=== PATIENT | female | born 1970 | race American Indian/Alaskan Native ===

== ENCOUNTER 2016-06-01 06:23 | Emergency (ER) | payer OTHER ==
[2016-06-01] MEDS ORDERED: TORADOL IM ONE (08:26)
[2016-06-01] MEDS ORDERED: FLEXERIL PO ONE (08:26)
--- NOTE | 2016-06-01 08:32 | Emergency Department Report ---
HPI - General Chief Complaint: Back Pain/Injury Time Seen by Provider: 06/01/16 08:12 - HPI HPI: 45-year-old female presents today complaining of left-sided lower back pain radiating to left buttocks since 3 PM yesterday. Patient states the pain started post her trying to move a table. Positive for pain worsening. Describes her pain as 10 on a 10 aching tightness that is worse with movement. He tried Tylenol 3 without relief. Denies history of similar symptoms. Denies numbness, weakness, paresthesias. Denies bowel or bladder incontinence. Denies fever, chills, nausea, vomiting, chest pain, shortness of breath, abdominal pain. Patient has history of hypertension and is currently taking lisinopril and verapamil. Patient states that she has not taken her blood pressure medication this morning. Denies headache, visual changes, dizziness, confusion. ED Past Medical Hx - Past Medical History Hx Hypertension: Yes Additional medical history: Gout - Surgical History Past Surgical History?: Yes Additional Surgical History: Appendix, Mammoplasti - Social History Smoking Status: Never Smoker Substance Use Type: None - Medications Home Medications: Home Medications Medication Instructions Recorded Confirmed Last Taken Type Cyclobenzaprine [Flexeril] 10 mg PO TID PRN #20 tablet 06/01/16 Unknown Rx Naproxen [Naprosyn] 500 mg PO BID #30 tablet 06/01/16 Unknown Rx ED Review of Systems ROS: Stated complaint: BACK PAIN Other details as noted in HPI Constitutional: denies: chills, fever, malaise Eyes: denies: eye pain ENT: denies: ear pain, throat pain, congestion Respiratory: denies: cough, shortness of breath, wheezing Cardiovascular: denies: chest pain, palpitations Endocrine: no symptoms reported Gastrointestinal: denies: abdominal pain, nausea, vomiting Genitourinary: denies: urgency, dysuria, frequency, hematuria Musculoskeletal: back pain Neurological: denies: headache, weakness, numbness, paresthesias Physical Exam - Physical Exam Vital Signs: Vital Signs 06/01/16 07:25 Temperature 98.5 F Pulse Rate 94 H Respiratory 18 Rate Blood Pressure 188/108 O2 Sat by Pulse 98 Oximetry Physical Exam: GENERAL: The patient is well-developed and well-nourished. Patient is in NAD. HEAD: Normocephalic. Atraumatic. CHEST/LUNGS: Clear to auscultation throughout. HEART/CARDIOVASCULAR: Regular rate and rhythm. ABDOMEN: Abdomen is soft, nontender. Bowel sounds normoactive. No guarding or rebound tenderness. Negative for CVA tenderness bilaterally. EXTREMITIES: Full range of motion. Peripheral pulses intact. Capillary refill less than 2 seconds. BACK: Full ROM. Positive for midline tenderness and left-sided paraspinal tenderness of lumbar region. No tenderness to palpation or sciatic notch bilaterally. Negative straight leg raise bilaterally. NEURO: Alert and oriented x 3. Normal gait. ED Course Vital Signs 06/01/16 07:25 Temperature 98.5 F Pulse Rate 94 H Respiratory 18 Rate Blood Pressure 188/108 O2 Sat by Pulse 98 Oximetry ED Medical Decision Making - Lab Data Vital Signs 06/01/16 06/01/16 06/01/16 07:25 08:55 10:26 Temperature 98.5 F 98.0 F Pulse Rate 94 H 71 Respiratory 18 22 20 Rate Blood Pressure 188/108 Blood Pressure 166/112 [Left] O2 Sat by Pulse 98 100 Oximetry Patient states she will take her blood pressure medication once she gets home. Denies treatment at this time. - Radiology Data Radiology results: report reviewed LUMBOSACRAL SPINE, 3 VIEWS: HISTORY: Midline back pain, tenderness. FINDINGS: Normal bone mineralization. Normal height and alignment to the lumbar vertebra. Mild disc space narrowing at L5-S1 is noted. The facet joints are unremarkable. The sacrum and SI joints are within normal limits. IMPRESSION: Early degenerative changes at L5-S1. No acute process. - Medical Decision Making 45-year-old female presents today with left-sided lower back pain since yesterday. Her x-ray results revealed degenerative changes but no acute process. Patient reported symptomatic relief post-Flexeril and Toradol. Patient is in no acute distress at this time. She will be discharged home and is encouraged to follow up with a primary care provider. She will be sent home on Flexeril and naproxen and is encouraged to return to the emergency room for any worsening symptoms. Critical care attestation.: If time is entered above; I have spent that time in minutes in the direct care of this critically ill patient, excluding procedure time. ED Disposition Clinical Impression: Lumbar strain Qualifiers: Encounter type: initial encounter Qualified Code(s): S39.012A - Strain of muscle, fascia and tendon of lower back, initial encounter Disposition: DISCHARGED TO HOME OR SELFCARE Is pt being admited?: No Does the pt Need Aspirin: No Condition: Stable Instructions: Muscle Strain (ED) Additional Instructions: Follow-up with primary care provider. Return to the emergency department if symptoms worsen. Prescriptions: Cyclobenzaprine [Flexeril] 10 mg PO TID PRN #20 tablet PRN Reason: Muscle Spasm Naproxen [Naprosyn] 500 mg PO BID #30 tablet Referrals: CECILIO ALVAREZ MD [Primary Care Provider] - 3-5 Days SHANDA JOHNSON MD [Staff Physician] - 3-5 Days Forms: Work/School Release Form(ED) Time of Disposition: 10:35
[2016-06-01 10:27] VITALS: BP 166/112
--- NOTE | 2016-06-01 10:32 | XRay Report ---
LUMBOSACRAL SPINE, 3 VIEWS: HISTORY: Midline back pain, tenderness. FINDINGS: Normal bone mineralization. Normal height and alignment to the lumbar vertebra. Mild disc space narrowing at L5-S1 is noted. The facet joints are unremarkable. The sacrum and SI joints are within normal limits. IMPRESSION: Early degenerative changes at L5-S1. No acute process.
== END 2016-06-01 10:48 | disposition home or self-care (01) ==
LOC: ED 06:23
DX: S39.012A Strain of muscle, fascia and tendon of lower back, initial encounter (principal); I10 Essential (primary) hypertension; M10.9 Gout, unspecified; X58.XXXA Exposure to other specified factors, initial encounter; Y93.89 Activity, other specified; Y99.8 Other external cause status; Y92.89 Other specified places as the place of occurrence of the external cause
CPT/HCPCS: 72100; 96372; 99283; J1885

== ENCOUNTER 2016-08-13 08:30 | Outpatient (CLI) | payer OTHER ==
--- NOTE | 2016-08-13 09:35 | Mammography Report ---
BILATERAL MAMMOGRAM: FINDINGS: The breasts are almost entirely fat (<25% glandular). No mass, distortion, suspicious calcification, or skin change is seen. CAD was utilized. IMPRESSION: Negative mammogram. There is no mammographic evidence of malignancy. RECOMMENDATION: Follow-up per ACS guidelines. BI-RADS CATEGORY: 1 = Negative ACR BI-RADS MAMMOGRAPHIC CODES: 0 = Needs additional imaging evaluation; 1 = Negative; 2 = Benign; 3 = Probably benign; 4 = Suspicious; 5 = Malignant; 6 = Known biopsy-proven malignancy COMMENT: 1. Dense breast tissue, i.e., adenosis, fibrocystic changes, etc., may obscure an underlying neoplasm. 2. Approximately 10% of cancers are not detected with mammography. 3. A negative mammography report should not delay biopsy if a clinically suspicious mass is present. COMMENT: Patient follow-up letters are generated in [employer].
== END 2016-08-13 08:31 | disposition home or self-care (01) ==
LOC: MAMMO 08:30
PROVIDERS: ATTEND Family Medicine
DX: Z12.31 Encounter for screening mammogram for malignant neoplasm of breast (principal)
CPT/HCPCS: 77067; G0202

== ENCOUNTER 2017-07-03 11:29 | Emergency (ER) | payer OTHER ==
--- NOTE | 2017-07-03 12:38 | XRay Report ---
Right foot 3 views: History: Pain and swelling. Findings: There is arthritic changes noted in the first tarsometatarsal joint and the metatarsophalangeal joint. Arthritic changes also noted at the distal interphalangeal joints. Arthritic change is noted the dorsal aspect of talonavicular and naviculocuneiform joints. No evidence of acute fracture. Impression: Arthritic changes as detailed above. No acute findings.
[2017-07-03] MEDS ORDERED: TORADOL IM ONE (16:47)
--- NOTE | 2017-07-03 17:11 | Emergency Department Report ---
ED Lower Extremity HPI - General Chief Complaint: Extremity Injury, Lower Stated Complaint: RIGHT FOOT PAIN Time Seen by Provider: 07/03/17 16:45 Source: patient Mode of arrival: Ambulatory Limitations: No Limitations - History of Present Illness Initial Comments: This a 46-year-old female nontoxic, well nourished in appearance, no acute signs of distress presents to the ED with c/o of right foot pain and swelling 3 days. Patient denies any trauma to the region. Patient states she has history of gout and has very similar symptoms. Patient denies any fever, chills , nausea, vomiting, chest pain, shortness of breath, numbness, tingling, decreased range of motion. He denies any joint swelling or joint redness. Patient denies any allergies. MD Complaint: foot injury -: days(s) (3) Injury: Foot: Right Severity: mild Severity scale (0 -10): 8 Improves With: nothing Worsens With: nothing Associated Symptoms: swelling, able to partially bear weight, ambulatory. denies: snap/pop sensation, numbness, tingling, unable to bear weight - Related Data Previous Rx's Medication Instructions Recorded Last Taken Type Cyclobenzaprine [Flexeril] 10 mg PO TID PRN #20 tablet 06/01/16 Unknown Rx Naproxen [Naprosyn] 500 mg PO BID #30 tablet 06/01/16 Unknown Rx Prednisone [predniSONE 10 mg 10 mg PO .TAPER #1 tab.ds.pk 07/03/17 Unknown Rx (6-Day Pack, 21 Tabs)] traMADol [Ultram] 50 mg PO Q6HR PRN #15 tablet 07/03/17 Unknown Rx Allergies Allergy/AdvReac Type Severity Reaction Status Date / Time No Known Allergies Allergy Unverified 06/01/16 07:24 ED Review of Systems ROS: Stated complaint: RIGHT FOOT PAIN Other details as noted in HPI Constitutional: denies: chills, fever Eyes: denies: eye pain, eye discharge, vision change ENT: denies: ear pain, throat pain Respiratory: denies: cough, shortness of breath, wheezing Cardiovascular: denies: chest pain, palpitations Endocrine: no symptoms reported Gastrointestinal: denies: abdominal pain, nausea, diarrhea Genitourinary: denies: urgency, dysuria, discharge Musculoskeletal: arthralgia. denies: back pain, joint swelling Skin: denies: rash, lesions Neurological: denies: headache, weakness, paresthesias Psychiatric: denies: anxiety, depression Hematological/Lymphatic: denies: easy bleeding, easy bruising ED Past Medical Hx - Past Medical History Hx Hypertension: Yes Additional medical history: Gout - Surgical History Additional Surgical History: Appendix, Mammoplasti - Social History Smoking Status: Never Smoker Substance Use Type: None - Medications Home Medications: Home Medications Medication Instructions Recorded Confirmed Last Taken Type Cyclobenzaprine [Flexeril] 10 mg PO TID PRN #20 tablet 06/01/16 Unknown Rx Naproxen [Naprosyn] 500 mg PO BID #30 tablet 06/01/16 Unknown Rx Prednisone [predniSONE 10 mg 10 mg PO .TAPER #1 tab.ds.pk 07/03/17 Unknown Rx (6-Day Pack, 21 Tabs)] traMADol [Ultram] 50 mg PO Q6HR PRN #15 tablet 07/03/17 Unknown Rx ED Physical Exam - General Limitations: No Limitations General appearance: alert, in no apparent distress - Head Head exam: Present: atraumatic, normocephalic - Eye Eye exam: Present: normal appearance - ENT ENT exam: Present: mucous membranes moist - Neck Neck exam: Present: normal inspection - Respiratory Respiratory exam: Present: normal lung sounds bilaterally. Absent: respiratory distress, wheezes, rales, rhonchi, stridor, chest wall tenderness, accessory muscle use, decreased breath sounds, prolonged expiratory - Cardiovascular Cardiovascular Exam: Present: regular rate, normal rhythm, normal heart sounds. Absent: irregular rhythm, systolic murmur, diastolic murmur, rubs, gallop - GI/Abdominal GI/Abdominal exam: Present: soft, normal bowel sounds. Absent: distended, tenderness, guarding, rebound, rigid, diminished bowel sounds - Rectal Rectal exam: Present: deferred - Extremities Exam Extremities exam: Present: normal inspection, full ROM, tenderness, normal capillary refill. Absent: pedal edema, joint swelling, calf tenderness - Expanded Lower Extremity Exam Right Hip exam: Present: normal inspection, full ROM Upper Leg exam: Present: normal inspection, full ROM Knee exam: Present: normal inspection, full ROM Lower Leg exam: Present: normal inspection, full ROM Ankle exam: Present: normal inspection, full ROM. Absent: tenderness, swelling , abrasion, laceration, ecchymosis, deformity, crepidus, dislocation, erythema, anterior draw sign Foot/Toe exam: Present: normal inspection, full ROM, tenderness, swelling. Absent: abrasion, laceration, ecchymosis, deformity, dislocation, erythema, amputation, puncture wound, foreign body, calcaneal tenderness, tenderness at base of 5th metatarsal, nail avulsion Neuro vascular tendon exam: Present: no vascular compromise. Absent: pulse deficit, abnormal cap refill, motor deficit, sensory deficit, tendon deficit, extremity cold to touch, pallor, abnormal 2-point discrimination, decreased fine /light touch, foot drop, peroneal nerve deficit, significant pain with passive ROM of distal joint Gait: Positive: observed and limited by pain - Back Exam Back exam: Present: normal inspection, full ROM - Neurological Exam Neurological exam: Present: alert, oriented X3, CN II-XII intact, normal gait, reflexes normal - Psychiatric Psychiatric exam: Present: normal affect, normal mood - Skin Skin exam: Present: warm, dry, intact, normal color. Absent: rash ED Course Vital Signs 07/03/17 11:35 Temperature 99.0 F Pulse Rate 105 H Respiratory 18 Rate O2 Sat by Pulse 100 Oximetry - Reevaluation(s) Reevaluation #1: 07/03/17 17:15 Patient is speaking in full sentences with no signs of distress noted. ED Lower Extremity MDM - Medical Decision Making This is a 46-year-old female that presents with gout arthritis. Patient is stable and was examined by me. Upon examination there is no joint redness, joint swelling. There is no signs of any cellulitis. X-ray obtained and dictated by radiologist within normal limits. Uric acid elevated with 8.9. Patient did receive Toradol and Solu-medrol in the ED,. PAtient is discharged with prednisone dose pack and ultram. PAtient was instructed not to operate any machinery while taking Ultram due to drowiness. Patient was referred and instructed to Follow-up with a primary care doctor in 3-5 days or if symptoms worsen and continue return to emergency room as soon as possible. At time of discharge, the patient does not seem toxic or ill in appearance. No acute signs of distress noted. Patient agrees to discharge treatment plan of care. No further questions noted by the patient. Critical care attestation.: If time is entered above; I have spent that time in minutes in the direct care of this critically ill patient, excluding procedure time. ED Disposition Clinical Impression: Gout attack Qualifiers: Gout site: foot Gout etiology: unspecified cause Laterality: right Qualified Code(s): M10.9 - Gout, unspecified Disposition: TO HOME OR SELFCARE Is pt being admited?: No Does the pt Need Aspirin: No Condition: Stable Instructions: Acute Gouty Arthritis (ED), Prednisone (By mouth), Tramadol (By mouth) Additional Instructions: Follow-up with a primary care doctor in 3-5 days or if symptoms worsen and continue return to emergency room as soon as possible. Do not operate any machinery while taking Ultram due to drowsiness Prescriptions: Prednisone [predniSONE 10 mg (6-Day Pack, 21 Tabs)] 10 mg PO .TAPER #1 tab.ds.pk traMADol [Ultram] 50 mg PO Q6HR PRN #15 tablet PRN Reason: Pain Referrals: PRIMARY CARE, [Primary Care Provider] - 3-5 Days RENAE BLAS MD [Staff Physician] - 3-5 Days [facility] [Outside] - 3-5 Days [facility] [Outside] - 3-5 Days Forms: Work/School Release Form(ED)
[2017-07-03 17:29] VITALS: BP 152/89
== END 2017-07-03 17:52 | disposition home or self-care (01) ==
LOC: ED 11:29
DX: M10.9 Gout, unspecified (principal); I10 Essential (primary) hypertension
CPT/HCPCS: 36415; 73630; 84550; 96372; 99283; J1885; J2930

== ENCOUNTER 2018-07-21 07:27 | Outpatient (CLI) | payer OTHER ==
--- NOTE | 2018-07-21 08:48 | Mammography Report ---
Screening mammogram: The patient had bilateral reduction surgery. Routine view demonstrates a generally fatty replaced pattern with numerous skin calcifications bilaterally. No other findings. No interval changes compared to July 2016. CAD was not captured. Impression: Stable exam. Recommendation: Annual mammogram followup. BI-RADS CATEGORY: 1 = Negative ACR BI-RADS MAMMOGRAPHIC CODES: 0 = Needs additional imaging evaluation; 1 = Negative; 2 = Benign; 3 = Probably benign; 4 = Suspicious; 5 = Malignant; 6 = Known biopsy-proven malignancy COMMENT: 1. Dense breast tissue, i.e., adenosis, fibrocystic changes, etc., may obscure an underlying neoplasm. 2. Approximately 10% of cancers are not detected with mammography. 3. A negative mammography report should not delay biopsy if a clinically suspicious mass is present.
== END 2018-07-21 07:28 | disposition home or self-care (01) ==
LOC: MAMMO 07:27
PROVIDERS: ATTEND Family Medicine
DX: Z12.31 Encounter for screening mammogram for malignant neoplasm of breast (principal); I10 Essential (primary) hypertension
CPT/HCPCS: 77067

== ENCOUNTER 2019-09-05 10:04 | Outpatient (CLI) | payer OTHER ==
--- NOTE | 2019-09-05 15:00 | Mammography Report ---
DIGITAL SCREENING MAMMOGRAM WITH CAD, 09/05/2019 INDICATION: Routine screening mammography. TECHNIQUE: Digital bilateral 2D mammography was obtained in the craniocaudal and mediolateral obliq ue projections. This examination was interpreted with the benefit of Computer-Aided Detection analysi s. COMPARISON: 07/21/2018 FINDINGS: Breast Density: The breasts are almost entirely fatty. There is no evidence of dominant mass, suspicious calcifications or architectural distortion in eithe r breast. Scattered bilateral benign calcifications, many of which are in the skin. IMPRESSION: No mammographic evidence of malignancy. Follow up recommendation: Routine yearly BI-RADS Category 2: Benign. A "normal" or negative report should not discourage follow up or biopsy of a clinically significant f inding. A written summary of these findings will be mailed to the patient. The patient will be entered into a mammography reporting system which will generate a reminder letter for the patient's next appointmen t at the appropriate interval. The [employer] recommends yearly mammograms starting at age 40 and continuing as l jacquie as a woman is in good health. Breast MRI is recommended for women with an approximate 20-25% or greater lifetime risk of breast cancer, including women with a strong family history of breast or ova vera cancer or who have been treated for Hodgkin's disease. Signer Name: Toñito Chino MD Signed: 09/05/2019 2:55 PM Workstation Name: [id number]
== END 2019-09-05 10:05 | disposition home or self-care (01) ==
LOC: MAMMO 10:04
PROVIDERS: ATTEND Family Medicine
DX: Z12.31 Encounter for screening mammogram for malignant neoplasm of breast (principal); N64.89 Other specified disorders of breast
CPT/HCPCS: 77067

== ENCOUNTER 2020-10-27 14:06 | Outpatient (CLI) | payer OTHER ==
--- NOTE | 2020-10-28 08:42 | Mammography Report ---
DIGITAL SCREENING MAMMOGRAM WITH CAD, 10/27/2020 CLINICAL INFORMATION / INDICATION: Routine screening mammography. TECHNIQUE: Digital bilateral 2D mammography was obtained in the craniocaudal and mediolateral obliqu e projections. This examination was interpreted with the benefit of Computer-Aided Detection analysis . COMPARISON: 09/05/2019, 07/21/2018, 08/13/2016 FINDINGS: Breast Density: The breasts are almost entirely fatty. No dominant mass, suspicious calcifications, or architectural distortion in either breast. There are diffuse bilateral coarse calcifications. Changes from bilateral breast reduction surgery ar e noted. IMPRESSION: No mammographic evidence of malignancy. Follow up recommendation: Routine yearly BI-RADS Category 2: Benign. A "normal" or negative report should not discourage follow up or biopsy of a clinically significant f inding. A written summary of these findings will be mailed to the patient. The patient will be entered into a mammography reporting system which will generate a reminder letter for the patient's next appointmen t at the appropriate interval. The [employer] recommends yearly mammograms starting at age 40 and continuing as l jacquie as a woman is in good health. Breast MRI is recommended for women with an approximate 20-25% or greater lifetime risk of breast cancer, including women with a strong family history of breast or ova vera cancer or who have been treated for Hodgkin's disease. Signer Name: Vivienne Arredondo MD Signed: 10/28/2020 8:38 AM Workstation Name: [email or web address]
== END 2020-10-27 14:07 | disposition home or self-care (01) ==
LOC: MAMMO 14:06
PROVIDERS: ATTEND Family Medicine
DX: Z12.31 Encounter for screening mammogram for malignant neoplasm of breast (principal); N64.89 Other specified disorders of breast
CPT/HCPCS: 77067